=== PATIENT | male | born 1945 | race Caucasian/White ===

== ENCOUNTER 2016-09-16 15:25 | Emergency (ER) | payer MEDICARE ==
[~2016-09-16] VITALS: Ht 185.4 cm; Wt 108.9 kg
--- NOTE | 2016-09-16 15:31 | NUR ---
[id number] FROM HOME: ETOH WITHDRAWAL. WOKE UP ON A FLOOR AT HOME, BRUISE TO LEFT EYE. LAST DRINK LAST NIGHT VODKA 1.75L. BS IN FIELD 190. ABD PAIN +. PLACED ON MONITOR. AWAITING MD ORDER.
--- NOTE | 2016-09-16 15:35 | NUR ---
DR HALEY AT BEDSIDE FOR EVAL
[2016-09-16] MEDS ORDERED: LORAZEPAM INJ 2 MG/ML VIAL IV STA ×2 (15:42→20:50)
--- NOTE | 2016-09-16 15:44 | NUR ---
SOLAR ENERGY ADVISOR AT BEDSIDE
--- NOTE | 2016-09-16 15:46 | NUR ---
EKG IN PROGRESS
[2016-09-16] MEDS ORDERED: PANTOPRAZOLE 40 MG VIAL IV ONE (16:00)
[2016-09-16] MEDS ORDERED: IV NS 0.9% 1,000 ML BAG IV ONE ×2 (16:00→17:00)
[2016-09-16] MEDS ORDERED: ONDANSETRON HCL/PF 4 MG/2 ML VIAL IVP ONE (16:00)
[2016-09-16] MEDS ORDERED: LORAZEPAM INJ 2 MG/ML VIAL ONE ×2 (16:07→20:51)
[2016-09-16] MEDS ORDERED: ONDANSETRON HCL/PF 4 MG/2 ML VIAL ONE (16:07)
[2016-09-16] MEDS ORDERED: PANTOPRAZOLE 40 MG VIAL ONE (16:07)
[2016-09-16 16:25] LABS: INR 1.06 (0.87-1.13)
[2016-09-16 16:31] LABS: TROPONIN I 0.028 ng/mL (0.00-0.056)
[2016-09-16] MEDS ORDERED: FLUT16SP16 NS (16:46)
[2016-09-16] MEDS ORDERED: ASPI81TA2 PO (16:46)
[2016-09-16] MEDS ORDERED: CETI-102 PO (16:46)
[2016-09-16] MEDS ORDERED: FINA5TAB11 PO (16:46)
[2016-09-16] MEDS ORDERED: LISI10TA5 PO (16:46)
[2016-09-16] MEDS ORDERED: OMEP20CA10 PO (16:46)
[2016-09-16] MEDS ORDERED: Thiamine 100 MG in IV D5W 50 ML IV STA (17:04)
[2016-09-16] MEDS ORDERED: Folic acid 1 MG in IV D5W 50 ML IV STA (17:04)
[2016-09-16 17:23] LABS: ALANINE AMINOTRANSFERASE 134 U/L (12-78); ALBUMIN 4.1 g/dL (3.4-5.0); ALCOHOL, BLOOD 30 mg/dL (0-0); ALKALINE PHOSPHATASE 114 U/L (46-116); ASPARTATE AMINOTRANSFERASE 150 U/L (15-37); BASOPHILS # (AUTO) 1.6 /CMM (0.0-0.2); BASOPHILS % (AUTO) 4.4 % (0.0-2.0); BILIRUBIN,DIRECT 0.3 mg/dL (0.0-0.2); BILIRUBIN,TOTAL 0.9 mg/dL (0.2-1.0); CALCIUM, SERUM 8.7 mg/dL (8.5-10.1); CARBON DIOXIDE 11 mmol/L (21-32); CHLORIDE 83 mmol/L (98-107); CREATININE 3.5 mg/dL (0.6-1.3); GLUCOSE 154 mg/dL (74-106); HEMATOCRIT 45 % (39-51); HEMOGLOBIN 14.6 g/dL (13.5-17.5); LYMPHOCYTES # (AUTO) 6.9 /CMM (0.8-4.8); LYMPHOCYTES % (AUTO) 18.9 % (20.0-44.0); MEAN CORPUSCULAR HEMOGLOBIN 30 PG (26.0-33.0); MEAN CORPUSCULAR HGB CONC 33 g/dl (31.0-36.0); MEAN CORPUSCULAR VOLUME 91 fL (80-96); MONOCYTES # (AUTO) 2.3 /CMM (0.1-1.30); MONOCYTES % (AUTO) 6.2 % (2.0-12.0); NEUTROPHILS # (AUTO) 25.7 /CMM (1.8-8.9); NEUTROPHILS % (AUTO) 70.5 % (43.0-81.0); PLATELET COUNT (AUTO) 419 /CMM (150-450); RDW COEFFICIENT OF VARIATION 14.2 (11.5-15.0); RED BLOOD CELL COUNT(AUTO) 4.93 MIL/uL (4.5-6.0); SODIUM SERUM 123 mmol/L (136-145); TOTAL PROTEIN, SERUM 7.5 g/dL (6.4-8.2); UREA NITROGEN, BLOOD 38 mg/dL (7-18)
[2016-09-16 17:25] LABS: WHITE BLOOD COUNT (AUTO) 36.5 K/uL (4.3-11.0)
[2016-09-16] MEDS ORDERED: MVI ADULT 10ML VIAL = 1AMP 10 ML in IV NS 0.9% 1,000 ML IV ONE (17:30)
[2016-09-16] MEDS ORDERED: PIPERACILLIN /TAZOBACTAM 3.375 G in IV D5W 50 ML IV ONE (17:30)
[2016-09-16] MEDS ORDERED: MAG HYDROX/AL HYDROX/SIMETH 30 ML UDC PO ONE (17:30)
[2016-09-16] MEDS ORDERED: MVI-12 10ML IV ONE (17:30)
--- NOTE | 2016-09-16 18:10 | NUR ---
PAGED DR EGAN FOR PANEL ADMISSION
--- NOTE | 2016-09-16 18:20 | NUR ---
DR EGAN CALLED BACK, TRANSFERRED CALL TO DR HALEY
[2016-09-16 18:25] LABS: APPEARANCE,URINE Turbid (CLEAR); BILIRUBIN,URINE SMALL (NEGATIVE); BLOOD, URINE Large Ery/uL (NEGATIVE); COLOR,URINE Brown (YELLOW); KETONES,URINE 15 (NEGATIVE); LEUKOCYTE ESTERASE ,URINE Negative (NEGATIVE); NITRITE, URINE Negative (NEGATIVE); PH,URINE 5.5 (5.0-8.0); PROTEIN,URINE >=300 mg/dl (NEGATIVE); UGLUCOSE Negative (NEGATIVE); UROBILINOGEN,URINE 0.2 EU/dL (0.2)
--- NOTE | 2016-09-16 18:26 | NUR ---
CALLED NURSING CREDIT RELATIONSHIP MANAGER FOR ICU BED
[2016-09-16 18:34] LABS: BAND % (MANUAL) 6 % (0.0-5.0); BASOPHILS % (MANUAL) 0 % (0.0-2.0); EOSINOPHILS % (MANUAL) 0 % (0-4); LYMPHOCYTES % (MANUAL) 28 % (16-48); MONOCYTES % (MANUAL) 5 % (0-11.0); NEUTROPHILS % (MANUAL) 61 (42-76)
[2016-09-16] MEDS ORDERED: IV NS 0.9% 1,000 ML IV PRN (18:39)
[2016-09-16 18:41] LABS: BACTERIA,URINE Few /HPF (None Seen); RBC,URINE TOO NUMEROUS TO COUN /HPF (0-2); SQUAMOUS EPITHELIAL CELL,UR Few /HPF (None Seen)
[2016-09-16] MEDS ORDERED: MAG HYDROX/AL HYDROX/SIMETH 30 ML UDC ONE (18:46)
--- NOTE | 2016-09-16 18:49 | NUR ---
PT TAKEN TO CT SCAN VIA ANISHA
[2016-09-16] MEDS ORDERED: Folic acid 1 MG in IV D5W 50 ML IV SCH (19:00)
[2016-09-16] MEDS ORDERED: ZOLPIDEM TARTRATE 5 MG TABLET PO PRN (19:00)
[2016-09-16] MEDS ORDERED: ACETAMINOPHEN 325 MG TABLET PO PRN (19:00)
[2016-09-16] MEDS ORDERED: Z GUARD REMEDY 2 OZ OINT TP PRN (19:00)
[2016-09-16] MEDS ORDERED: PANTOPRAZOLE 40 MG VIAL IV SCH (19:00)
[2016-09-16] MEDS ORDERED: Thiamine 100 MG in IV D5W 50 ML IV SCH (19:00)
[2016-09-16] MEDS ORDERED: ONDANSETRON HCL/PF 4 MG/2 ML VIAL IVP PRN (19:00)
[2016-09-16] MEDS ORDERED: LORAZEPAM INJ 2 MG/ML VIAL IV PRN (19:00)
[2016-09-16 19:10] LABS: CREATINE KINASE MB 81.6 ng/mL (0-3.6)
--- NOTE | 2016-09-16 19:51 | NUR ---
CALLED NURSING TECHNICAL SERVICES ASSISTANT TO FOLLOW UP ON ICU BED
[2016-09-16] MEDS ORDERED: DIATRIZOATE MEGLUMINE 300 ML BOTTLE UR ONE (20:06)
--- NOTE | 2016-09-16 20:12 | NUR ---
ICU 262
--- NOTE | 2016-09-16 20:51 | NUR ---
CALLED TANIKA FOR READ ON CT ABDOMEN/PELVIS
--- NOTE | 2016-09-16 21:01 | NUR ---
GAVE REPORT TO ROLANDO PARKINSON ADMITTING DX ACUTE RENAL FAILURE, SEPSIS, ALOCHOL WITHDRAWAL RHABDMOYOLYSIS
[2016-09-16 21:02] VITALS: BP 135/75
--- NOTE | 2016-09-16 21:30 | NUR ---
PAGED DR RAINEY ADMITING FOR [facility] FOR POTENTIAL UROLOGY TRANSFER
--- NOTE | 2016-09-16 21:32 | NUR ---
DR RAINEY CALLED. TRANSFERRED CALL TO DR HALEY
--- NOTE | 2016-09-16 21:36 | NUR ---
PER DR RAINEY, PAGED DR ROSEMARY ADAM CELLAR WORKER UROLOGIST FOR [facility]
--- NOTE | 2016-09-16 21:50 | NUR ---
CALLED MARNIE, NURSING LEGAL ANALYST AT [facility] FOR PLACEMENT
--- NOTE | 2016-09-16 21:55 | NUR ---
CALLED [facility] FOR ALS TRANSPORT TO [place] ICU. ETA [id number]
--- NOTE | 2016-09-16 22:00 | NUR ---
PT WILL GO TO [facility] ICU BED 1. NUMBER FOR REPORT: [id number].
--- NOTE | 2016-09-16 22:32 | NUR ---
GAVE REPORT TO DARBY PARKINSON AT [facility] DUE TO UROLOGY CONSULT.
[2016-09-17] MEDS ORDERED: PIPERACILLIN /TAZOBACTAM 2.25 G in IV D5W 50 ML IV SCH ×2
== END 2016-09-16 22:45 | disposition short-term general hospital (02) ==
LOC: ER 15:26 → UNDOADMIN 20:31 → ICU 20:31
DX: A41.9 Sepsis, unspecified organism (principal); N17.9 Acute kidney failure, unspecified; F10.239 Alcohol dependence with withdrawal, unspecified; M62.82 Rhabdomyolysis; N32.89 Other specified disorders of bladder; K70.10 Alcoholic hepatitis without ascites; E87.8 Other disorders of electrolyte and fluid balance, not elsewhere classified; K21.9 Gastro-esophageal reflux disease without esophagitis; R41.82 Altered mental status, unspecified
CPT/HCPCS: 36415; 70450; 71010; 72125; 72128 ×2; 74176 ×2; 80048; 80076; 81001; 82140; 82550; 82553; 83605 ×2; 84484; 85025; 85730; 87040 ×2; 87081; 93005; 96365 ×2; 96366; 96367; 96368; 96375; 96376; 99291; A9698; C9113; G0480; J2060 ×2; J2405; J2543; J3411 ×2; J3490 ×2; J7030 ×7; J7040; J7060 ×5; 81000-TC; A4606; Z7610